=== PATIENT | female | born 2000 | race Caucasian/White ===

== ENCOUNTER 2019-02-07 10:44 | Emergency (ER) | payer OTHER ==
[2019-02-07] MEDS: diPHENhydraMINE PO* 25 MG PO ONE (12:45)
[2019-02-07 12:47] VITALS: BP 139/76
== END 2019-02-07 14:38 | disposition left against medical advice (07) ==
LOC: ED 10:44
DX: Z53.21 Procedure and treatment not carried out due to patient leaving prior to being seen by health care provider (principal)
CPT/HCPCS: 99281; A9270-GY